=== PATIENT | male | born 1935 | race Caucasian/White ===

== ENCOUNTER 2017-07-08 08:11 | Day surgery (SDC) | payer MEDICARE, BC ==
[2017-07-08] VITALS (7 sets, daily range): BP systolic 82–118; BP diastolic 43–66
[~2017-07-08] VITALS: Ht 180.3 cm; Wt 74.9 kg
[2017-07-08] MEDS ORDERED: APIX5TAB3 PO (09:19)
[2017-07-08] MEDS ORDERED: METO-539 PO (09:19)
[2017-07-08] MEDS ORDERED: FURO-150 PO (09:19)
[2017-07-08] MEDS ORDERED: SILD20TA PO (09:19)
== END 2017-07-08 10:10 | disposition home or self-care (01) ==
LOC: SSTAY O 08:11
PROVIDERS: ATTEND Radiology Diagnostic Radiology
DX: D72.820 Lymphocytosis (symptomatic) (principal); I10 Essential (primary) hypertension; I25.10 Atherosclerotic heart disease of native coronary artery without angina pectoris; I27.20 Pulmonary hypertension, unspecified; G47.33 Obstructive sleep apnea (adult) (pediatric); I48.91 Unspecified atrial fibrillation; I36.1 Nonrheumatic tricuspid (valve) insufficiency; I27.81 Cor pulmonale (chronic); M19.90 Unspecified osteoarthritis, unspecified site; E11.9 Type 2 diabetes mellitus without complications; Z95.2 Presence of prosthetic heart valve; Z72.89 Other problems related to lifestyle; Z79.01 Long term (current) use of anticoagulants; Z95.1 Presence of aortocoronary bypass graft; Z88.8 Allergy status to other drugs, medicaments and biological substances; Z79.899 Other long term (current) drug therapy; Z98.890 Other specified postprocedural states
CPT/HCPCS: 32555; 71045; 88108; 88305